=== PATIENT | male | born 1990 | race Caucasian/White ===

== ENCOUNTER 2018-11-03 01:34 | Emergency (ER) | payer MEDICARE, MEDICAID ==
[~2018-11-03] VITALS: Ht 167.6 cm; Wt 66.2 kg
[2018-11-03 02:04] VITALS: BP 149/88
[2018-11-03 02:21] LABS: BASOPHILS # (AUTO) 0.1 /CMM (0.0-0.2); BASOPHILS % (AUTO) 0.8 % (0.0-2.0); EOSINOPHILS % (AUTO) 2.4 % (0.0-6.0); HEMATOCRIT 47 % (39-51); HEMOGLOBIN 16.1 g/dL (13.5-17.5); LYMPHOCYTES # (AUTO) 3.4 /CMM (0.8-4.8); LYMPHOCYTES % (AUTO) 29.9 % (20.0-44.0); MEAN CORPUSCULAR HGB CONC 35 g/dl (31.0-36.0); MEAN CORPUSCULAR VOLUME 100 fL (80-96); MONOCYTES # (AUTO) 0.7 /CMM (0.1-1.30); MONOCYTES % (AUTO) 6.6 % (2.0-12.0); NEUTROPHILS # (AUTO) 6.8 /CMM (1.8-8.9); NEUTROPHILS % (AUTO) 60.3 % (43.0-81.0); PLATELET COUNT (AUTO) 240 /CMM (150-450); RED BLOOD CELL COUNT(AUTO) 4.66 MIL/uL (4.5-6.0); WHITE BLOOD COUNT (AUTO) 11.3 K/uL (4.3-11.0)
[2018-11-03 02:25] LABS: APPEARANCE,URINE CLEAR (CLEAR); BILIRUBIN,URINE NEGATIVE (NEGATIVE); BLOOD, URINE NEGATIVE Ery/uL (NEGATIVE); COLOR,URINE YELLOW (YELLOW); KETONES,URINE NEGATIVE (NEGATIVE); LEUKOCYTE ESTERASE ,URINE NEGATIVE (NEGATIVE); NITRITE, URINE NEGATIVE (NEGATIVE); PH,URINE 5.5 (5.0-8.0); PROTEIN,URINE NEGATIVE (NEGATIVE); UGLUCOSE NEGATIVE (NEGATIVE); UROBILINOGEN,URINE 0.2 EU/dL (0.2)
--- NOTE | 2018-11-03 02:30 | NUR ---
Patient eloped from facility. ER MD notified.
[2018-11-03 02:32] LABS: CREATININE 0.9 mg/dL (0.6-1.3); POTASSIUM 3.9 mmol/L (3.5-5.1)
[2018-11-03 02:37] LABS: ALBUMIN 4.1 g/dL (3.4-5.0); BILIRUBIN,DIRECT 0.1 mg/dL (0.0-0.2); BILIRUBIN,TOTAL 0.4 mg/dL (0.2-1.0); SALICYLATE 6.5 mg/dL (2.8-20.0); TOTAL PROTEIN, SERUM 7.6 g/dL (6.4-8.2)
== END 2018-11-03 05:16 | disposition left against medical advice (07) ==
LOC: ER 01:37
DX: F32.9 Major depressive disorder, single episode, unspecified (principal); G62.9 Polyneuropathy, unspecified; F20.0 Paranoid schizophrenia; F41.9 Anxiety disorder, unspecified; F10.10 Alcohol abuse, uncomplicated; F29 Unspecified psychosis not due to a substance or known physiological condition; Y90.6 Blood alcohol level of 120-199 mg/100 ml
CPT/HCPCS: 36415; 80048; 80076; 80305; 80307; 80329; 81001; 85025; 99284; G0480; 81000-TC

== ENCOUNTER 2019-01-03 12:36 | Emergency (ER) | payer MEDICARE, MEDICAID ==
[~2019-01-03] VITALS: Ht 167.6 cm; Wt 77.1 kg
[2019-01-03 13:15] LABS: BASOPHILS % (AUTO) 0.1 % (0.0-2.0); EOSINOPHILS % (AUTO) 3.9 % (0.0-6.0); HEMATOCRIT 45 % (39-51); HEMOGLOBIN 15.8 g/dL (13.5-17.5); LYMPHOCYTES # (AUTO) 1.7 /CMM (0.8-4.8); LYMPHOCYTES % (AUTO) 20.7 % (20.0-44.0); MEAN CORPUSCULAR HGB CONC 35 g/dl (31.0-36.0); MEAN CORPUSCULAR VOLUME 102 fL (80-96); MONOCYTES # (AUTO) 0.8 /CMM (0.1-1.30); MONOCYTES % (AUTO) 9.5 % (2.0-12.0); NEUTROPHILS # (AUTO) 5.4 /CMM (1.8-8.9); NEUTROPHILS % (AUTO) 65.8 % (43.0-81.0); PLATELET COUNT (AUTO) 211 /CMM (150-450); RED BLOOD CELL COUNT(AUTO) 4.45 MIL/uL (4.5-6.0); WHITE BLOOD COUNT (AUTO) 8.3 K/uL (4.3-11.0)
[2019-01-03 13:28] LABS: ALANINE AMINOTRANSFERASE 24 U/L (12-78); ALBUMIN 3.8 g/dL (3.4-5.0); ALCOHOL, BLOOD 228 mg/dL (0-0); ALKALINE PHOSPHATASE 59 U/L (46-116); ASPARTATE AMINOTRANSFERASE 18 U/L (15-37); BILIRUBIN,DIRECT 0.1 mg/dL (0.0-0.2); BILIRUBIN,TOTAL 0.5 mg/dL (0.2-1.0); CALCIUM, SERUM 8.4 mg/dL (8.5-10.1); CARBON DIOXIDE 23 mmol/L (21-32); CHLORIDE 105 mmol/L (98-107); CREATININE 0.9 mg/dL (0.6-1.3); GLUCOSE 96 mg/dL (74-106); POTASSIUM 3.8 mmol/L (3.5-5.1); SALICYLATE 4.2 mg/dL (2.8-20.0); SODIUM SERUM 142 mmol/L (136-145); TOTAL PROTEIN, SERUM 7.1 g/dL (6.4-8.2); UREA NITROGEN, BLOOD 8 mg/dL (7-18)
[2019-01-03 13:45] LABS: ACETAMINOPHEN < 2 ug/ml (10-30)
--- NOTE | 2019-01-03 14:23 | NUR ---
1240: Patient resting, still sleepy from alcohol use. 1400: Still sleeping. VSS.
--- NOTE | 2019-01-03 16:22 | NUR ---
Patient is awake now, family came, able to ambulate independently, asking to be discharged.
--- NOTE | 2019-01-03 16:33 | NUR ---
Patient left with out signing DC papers, he wanted to leave right away.
[2019-01-03 16:46] VITALS: BP 131/65
== END 2019-01-03 16:30 | disposition home or self-care (01) ==
LOC: ER 12:40
DX: F10.10 Alcohol abuse, uncomplicated (principal); F41.9 Anxiety disorder, unspecified; F99 Mental disorder, not otherwise specified; F43.10 Post-traumatic stress disorder, unspecified; G62.9 Polyneuropathy, unspecified; F20.0 Paranoid schizophrenia; Y90.7 Blood alcohol level of 200-239 mg/100 ml
CPT/HCPCS: 36415; 80048; 80076; 80307; 80329; 85025; 99283; G0480

== ENCOUNTER 2019-06-29 15:18 | Emergency (ER) | payer MEDICAID, MEDICARE ==
[~2019-06-29] VITALS: Ht 167.6 cm; Wt 63.0 kg
--- NOTE | 2019-06-29 15:56 | NUR ---
CAME IN FOR DEPRESSION, SI, "I DONT TO BE HERE ANYMORE." +PLAN TO LAY ON THE TRACKS. , TO ER BED 10, HOOKED TO MONITOR, CHANGED TO HOSP GOWN, PROVIDED W WARM BLANKET, AWAITING MD LARKIN
--- NOTE | 2019-06-29 16:00 | NUR ---
1:1 SITTER AT BEDSIDE
--- NOTE | 2019-06-29 16:04 | NUR ---
GIDEON ALDRIDGE AT BEDSIDE
--- NOTE | 2019-06-29 16:05 | NUR ---
WANDED BY SECURITY, BELONGINGS IN LOCKER ROOM
[2019-06-29 16:20] LABS: APPEARANCE,URINE Clear (CLEAR); BILIRUBIN,URINE Negative (NEGATIVE); BLOOD, URINE Negative Ery/uL (NEGATIVE); COLOR,URINE Yellow (YELLOW); KETONES,URINE Negative (NEGATIVE); LEUKOCYTE ESTERASE ,URINE Negative (NEGATIVE); NITRITE, URINE Negative (NEGATIVE); PH,URINE 6.5 (5.0-8.0); PROTEIN,URINE Negative (NEGATIVE); UGLUCOSE Negative (NEGATIVE); UROBILINOGEN,URINE 0.2 EU/dL (0.2)
[2019-06-29 16:22] LABS: BASOPHILS # (AUTO) 0.1 /CMM (0.0-0.2); EOSINOPHILS % (AUTO) 3.2 % (0.0-6.0); HEMATOCRIT 46 % (39-51); HEMOGLOBIN 15.5 g/dL (13.5-17.5); LYMPHOCYTES # (AUTO) 2.6 /CMM (0.8-4.8); LYMPHOCYTES % (AUTO) 34.9 % (20.0-44.0); MEAN CORPUSCULAR HGB CONC 34 g/dl (31.0-36.0); MEAN CORPUSCULAR VOLUME 100 fL (80-96); MONOCYTES # (AUTO) 0.5 /CMM (0.1-1.30); MONOCYTES % (AUTO) 6.6 % (2.0-12.0); NEUTROPHILS # (AUTO) 4.1 /CMM (1.8-8.9); NEUTROPHILS % (AUTO) 54.3 % (43.0-81.0); PLATELET COUNT (AUTO) 216 /CMM (150-450); RED BLOOD CELL COUNT(AUTO) 4.57 MIL/uL (4.5-6.0); WHITE BLOOD COUNT (AUTO) 7.5 K/uL (4.3-11.0)
[2019-06-29] MEDS ORDERED: OLANZAPINE 5 MG TABLET ONE (16:28)
[2019-06-29] MEDS: OLANZAPINE 5 MG TABLET PO ONE (16:30)
[2019-06-29 16:31] LABS: CARBON DIOXIDE 21 mmol/L (21-32); CHLORIDE 106 mmol/L (98-107); CREATININE 0.9 mg/dL (0.6-1.3); GLUCOSE 150 mg/dL (74-106); POTASSIUM 3.6 mmol/L (3.5-5.1); SODIUM SERUM 141 mmol/L (136-145); UREA NITROGEN, BLOOD 8 mg/dL (7-18)
[2019-06-29 16:48] LABS: ACETAMINOPHEN < 2 ug/ml (10-30); ALANINE AMINOTRANSFERASE 19 U/L (12-78); ALBUMIN 3.7 g/dL (3.4-5.0); ALCOHOL, BLOOD 109 mg/dL (0-0); ALKALINE PHOSPHATASE 58 U/L (46-116); ASPARTATE AMINOTRANSFERASE 14 U/L (15-37); BILIRUBIN,DIRECT 0.1 mg/dL (0.0-0.2); BILIRUBIN,TOTAL 0.2 mg/dL (0.2-1.0); SALICYLATE 4.6 mg/dL (2.8-20.0); TOTAL PROTEIN, SERUM 7.2 g/dL (6.4-8.2)
--- NOTE | 2019-06-29 18:22 | NUR ---
PATIENT ASLEEP IN BED, EASILY AROUSABLE BY VOICE. HOOKED TO MONITOR, KEPT SAFE AND COMFORTABLE. WILL CONTINUE TO MONITOR ACCORDINGLY
--- NOTE | 2019-06-29 18:24 | NUR ---
PT ACCEPTED AT [facility] BY DR BOJORQUEZ, RN FOR REPORT [phone]
--- NOTE | 2019-06-29 18:31 | NUR ---
called for report using number given, no answer
--- NOTE | 2019-06-29 18:41 | NUR ---
REPORT GIVEN TO [facility]I UNIT 2 OF [facility] NUMBER CALLED FOR REPORT: [phone]
--- NOTE | 2019-06-29 18:42 | NUR ---
DAVIDE ARGUELLO [id number] TRIP#[id number]
--- NOTE | 2019-06-29 19:13 | NUR ---
Report recieved from Jewel HUMPHREY for [facility]
--- NOTE | 2019-06-29 19:14 | NUR ---
REPORT GIVEN TO DAVID HUMPHREY FOR [facility]
--- NOTE | 2019-06-29 19:53 | NUR ---
Patient is resting comfortably in bed with eyes closed. Easily aroused. VSS.
--- NOTE | 2019-06-29 20:52 | NUR ---
Patient is resting comfortably in bed with eyes closed. Easily aroused.
--- NOTE | 2019-06-29 22:02 | NUR ---
Patient is resting comfortably in bed with eyes closed. Easily aroused. VSS
--- NOTE | 2019-06-29 22:23 | NUR ---
Patient is resting comfortably in bed with eyes closed. Easily aroused. VSS.
--- NOTE | 2019-06-29 22:23 | NUR ---
UPDATED ETA [id number]
--- NOTE | 2019-06-29 22:58 | NUR ---
TRANSPORT AT BEDSIDE.
--- NOTE | 2019-06-29 23:00 | NUR ---
PT TRANSFERED OUT
[2019-06-29 23:05] VITALS: BP 145/94
== END 2019-06-29 23:00 ==
LOC: ER 15:18
DX: F20.0 Paranoid schizophrenia (principal); F15.10 Other stimulant abuse, uncomplicated; F10.129 Alcohol abuse with intoxication, unspecified; R45.851 Suicidal ideations; F12.90 Cannabis use, unspecified, uncomplicated; D75.89 Other specified diseases of blood and blood-forming organs; G62.9 Polyneuropathy, unspecified; F41.9 Anxiety disorder, unspecified; F17.200 Nicotine dependence, unspecified, uncomplicated; R00.0 Tachycardia, unspecified; F52.8 Other sexual dysfunction not due to a substance or known physiological condition; Y90.5 Blood alcohol level of 100-119 mg/100 ml; Z04.6 Encounter for general psychiatric examination, requested by authority
CPT/HCPCS: 36415; 80048; 80076; 80305; 80307; 80329; 81001; 85025; 99285; 99406; G0480; 81000-TC

== ENCOUNTER 2019-10-08 23:30 | Emergency (ER) | payer BC, MEDICAID ==
[~2019-10-08] VITALS: Ht 167.6 cm; Wt 72.1 kg
--- NOTE | 2019-10-09 00:10 | NUR ---
PT AAOX4. BIBS. C/O SI WITH PLAN TO RUN INTO TRAFFIC. PT STATED HE FEELS HOPELESS AND THERE IS NOTHING TO LIVE FOR. +AUDITORY HALLUCINATION. ALCOHOL AND CANNABIS USE TONIGHT BY PT. PT PALCED IN GOWN, BELONINGS PLACED IN LOCKER, ALL WIRES AND OBJECTS PALCED AWAY FROM PT. SITTER AT BEDSIDE.
--- NOTE | 2019-10-09 01:00 | NUR ---
ROLL MACHINE OPERATOR AT BEDSIDE
[2019-10-09 01:04] LABS: BASOPHILS # (AUTO) 0.1 /CMM (0.0-0.2); BASOPHILS % (AUTO) 0.6 % (0.0-2.0); EOSINOPHILS % (AUTO) 3.8 % (0.0-6.0); HEMATOCRIT 48 % (39-51); HEMOGLOBIN 16.3 g/dL (13.5-17.5); LYMPHOCYTES % (AUTO) 29.2 % (20.0-44.0); MEAN CORPUSCULAR HGB CONC 34 g/dl (31.0-36.0); MEAN CORPUSCULAR VOLUME 99 fL (80-96); MONOCYTES # (AUTO) 1.2 /CMM (0.1-1.30); NEUTROPHILS # (AUTO) 7.8 /CMM (1.8-8.9); NEUTROPHILS % (AUTO) 57.4 % (43.0-81.0); PLATELET COUNT (AUTO) 200 /CMM (150-450); RED BLOOD CELL COUNT(AUTO) 4.83 MIL/uL (4.5-6.0); WHITE BLOOD COUNT (AUTO) 13.6 K/uL (4.3-11.0)
[2019-10-09 01:12] LABS: APPEARANCE,URINE Clear (CLEAR); BILIRUBIN,URINE SMALL (NEGATIVE); BLOOD, URINE Negative Ery/uL (NEGATIVE); COLOR,URINE Yellow (YELLOW); KETONES,URINE Negative (NEGATIVE); LEUKOCYTE ESTERASE ,URINE Negative (NEGATIVE); NITRITE, URINE Negative (NEGATIVE); PH,URINE 5.5 (5.0-8.0); PROTEIN,URINE Negative (NEGATIVE); UGLUCOSE Negative (NEGATIVE); UROBILINOGEN,URINE 0.2 EU/dL (0.2)
[2019-10-09 01:14] LABS: CARBON DIOXIDE 23 mmol/L (21-32); CHLORIDE 105 mmol/L (98-107); CREATININE 1.1 mg/dL (0.6-1.3); GLUCOSE 107 mg/dL (74-106); POTASSIUM 4.2 mmol/L (3.5-5.1); SODIUM SERUM 139 mmol/L (136-145); UREA NITROGEN, BLOOD 16 mg/dL (7-18)
[2019-10-09 01:19] LABS: ALANINE AMINOTRANSFERASE 25 U/L (12-78); ALBUMIN 4.3 g/dL (3.4-5.0); ALCOHOL, BLOOD < 3 mg/dL (0-0); ALKALINE PHOSPHATASE 90 U/L (46-116); ASPARTATE AMINOTRANSFERASE 23 U/L (15-37); BILIRUBIN,DIRECT 0.1 mg/dL (0.0-0.2); BILIRUBIN,TOTAL 0.4 mg/dL (0.2-1.0); SALICYLATE 6.3 mg/dL (2.8-20.0); TOTAL PROTEIN, SERUM 7.6 g/dL (6.4-8.2)
[2019-10-09 01:21] LABS: ACETAMINOPHEN 0 ug/ml (10-30)
--- NOTE | 2019-10-09 02:28 | NUR ---
CALLED [employer] SPECIALIST FOR EVALUATION
--- NOTE | 2019-10-09 02:56 | NUR ---
VIDYA EXECUTIVE MEETING MANAGER AT BEDSIDE FOR EVALUATION
--- NOTE | 2019-10-09 05:39 | NUR ---
Patient is resting comfortably in bed with eyes closed. Easily aroused. VSS.
--- NOTE | 2019-10-09 06:11 | NUR ---
CALLED DAVID KUMAR FOR AN UPDATE ON PLACEMENT, STILL REVIEWING CLINICAL PACKET. THEY WILL CALL BACK FOR UPDATE
--- NOTE | 2019-10-09 06:48 | NUR ---
TRANSFER INFORMATION: PT ACCEPTED TO [facility] ACCEPTING MD: DR. BEDOYA PT GOING TO [facility] [address]
--- NOTE | 2019-10-09 06:50 | NUR ---
REPORT GIVEN TO ASHLEY HUMPHREY FROM [facility] FOR [facility]
--- NOTE | 2019-10-09 06:54 | NUR ---
CALLED [facility] FOR TRANSPORTATION ETA 0800. TRIP NUMBER [id number]
[2019-10-09 08:34] VITALS: BP 128/74
== END 2019-10-09 08:37 ==
LOC: ER 23:30
DX: R45.851 Suicidal ideations (principal); F12.10 Cannabis abuse, uncomplicated; F20.0 Paranoid schizophrenia; R41.82 Altered mental status, unspecified; F41.9 Anxiety disorder, unspecified; F43.10 Post-traumatic stress disorder, unspecified
CPT/HCPCS: 36415; 80048; 80076; 80305; 80307; 80329; 81001; 85025; 99285; G0480; 81000-TC